=== PATIENT | female | born 1990 | race Caucasian/White ===

== ENCOUNTER 2019-09-24 10:46 | Inpatient (IN) | payer BC ==
[2019-09-24] MEDS ORDERED: METHYLERGONOVINE 0.2 MG/ML 1 ML AMP IM PRN (11:35)
[2019-09-24] MEDS ORDERED: LIDOCAINE 0.5% (PF) 5 MG/ML (50 ML SDV) SQ PRN (11:35)
[2019-09-24] MEDS ORDERED: OXYTOCIN 10 UNIT/ML 1 ML VIAL IM PRN (11:35)
[2019-09-24] MEDS ORDERED: CARBOPROST TROMETHAMINE 250 MCG/ML 1 ML AMP IM PRN (11:35)
[2019-09-24] MEDS ORDERED: TERBUTALINE 1 MG/ML VIAL SQ PRN (11:35)
[2019-09-24] MEDS ORDERED: LACTATED RINGERS 1,000 ML IV SCH (11:45)
[2019-09-24] MEDS ORDERED: OXYTOCIN 30 UNITS/500 ML NS 30 UNIT in SALINE 1 500ML.BAG IV SCH (11:45)
[2019-09-24 12:17] LABS: Basophils % (A) 0 %; Eosinophils # (A) 0.1 k/uL (0-0.7); Eosinophils % (A) 1 %; HCT 36.2 % (34.0-46.0); Lymphocytes # (A) 1.1 k/uL (1.0-4.8); Lymphocytes % (A) 18 %; MCHC 33.2 g/dL (31.0-37.0); MCV 90.3 fL (80.0-100.0); Mean Platelet Volume 8.5; Monocytes # (A) 0.3 k/uL (0-1.0); Monocytes % (A) 6 %; Neutrophils # (A) 4.4 k/uL (1.3-7.7); Neutrophils % (A) 74 %; Platelet Count 198 k/uL (150-450); RBC 4.01 m/uL (3.80-5.40); RDW 14.2 % (11.5-15.5); WBC 5.9 k/uL (3.8-10.6)
--- NOTE | 2019-09-24 13:03 | P.HPOB ---
History of Present Illness H&P Date: 09/24/19 Chief Complaint: My water broke at midnight This is a 29-year-old white female 2 para 1001 EDC 10/02/2019 at 38-6/7 weeks' gestation. Patient presents with a history of leaking clear fluid since midnight. She is having irregular mild uterine contractions. Fetus is been active throughout the . Obstetric history is significant for negative group B strep cultures, 1 hour Glucola 76, gonorrhea and chlamydia cultures negative, hepatitis B surface antigen urine culture and HIV negative, blood type O positive, rubella status immune. Past medical history is significant for anxiety. Past surgical history cervical life conization, wisdom teeth extracted. Current medications Zoloft 50 mg daily, vitamin daily. ALLERGIES none known. Family history significant for ovarian cancer. Social history patient is , she works for the [employer], she has never been a smoker and denies alcohol or drug use. On exam patient is 5 foot 5 inches, 240 pounds, blood pressure 131/79 on admission. Patient is afebrile. The general physical exam is within normal limits. Cervix is 4-5 cm dilated, 80% effaced, -1 station, vertex presentation, slightly posterior. Artificial amniorrhexis of a fore-bag reveals clear fluid. heart rate is consistent with reactive NST. Impression: 38-6/7 weeks intrauterine , early active labor. All signs reassuring. Plan: Continue close maternal and surveillance. At oxytocin augmentation as needed. Analgesic options have been reviewed with the patient. Anticipate normal spontaneous vaginal delivery. Review of Systems Constitutional: Reports as per HPI Past Medical History Additional Past Medical History / Comment(s): severe cervical dysplasia History of Any Multi-Drug Resistant Organisms: None Reported Additional Past Surgical History / Comment(s): wisdom teeth, cold knife cone, colposcopy,LEEP Past Anesthesia/Blood Transfusion Reactions: No Reported Reaction Past Psychological History: Anxiety Smoking Status: Never smoker Past Alcohol Use History: None Reported Past Drug Use History: None Reported - Past Family History Father Family Medical History: No Reported History Medications and Allergies Home Medications Medication Instructions Recorded Confirmed Type Pnv No.95/Ferrous Fum/Folic AC 1 tab PO DAILY 09/24/19 09/24/19 History [ Multivitamin Tablet] Sertraline [Zoloft] 50 mg PO DAILY 09/24/19 09/24/19 History Allergies Allergy/AdvReac Type Severity Reaction Status Date / Time No Known Allergies Allergy Verified 09/24/19 11:01 Exam Vital Signs Temp Pulse Resp BP Pulse Ox 09/24/19 11:02 97.9 F 103 H 18 131/79 96 Intake and Output 09/23/19 09/24/19 09/24/19 22:59 06:59 14:59 Other: Weight 108.862 kg see dictation please Results Result Diagrams: 09/24/19 12:03 Assessment and Plan Assessment: 38-6/7 weeks intrauterine , spontaneous amniorrhexis, early active labor. All signs reassuring. Plan: Analgesic options have been reviewed with the patient. Oxytocin augmentation per protocol. Close maternal and surveillance. Anticipate normal spontaneous vaginal delivery. Time with Patient: Less than 30
--- NOTE | 2019-09-24 13:04 | P.MSEPDOC ---
Presenting Problems - Arrival Data Date of Arrival on Unit: 09/24/19 Time of Arrival on Unit: 10:45 Mode of Transport: Ambulatory - Complaint OB-Reason for Admission/Chief Complaint: Rule Out SROM Comment: ROM clear fluid 0000 Medical History - Information : 2 Para: 1 Term: 1 : 0 Abortions: Spontaneous or Elective: 0 Number of Living Children: 1 - Gestational Age Gestational Age by MARY CARMEN (wks/days): 38 Weeks and 6 Days Review of Systems - Review of Systems Constitutional: No problems Breast: No problems ENT: No problems Cardiovascular: No problems Respiratory: No problems Gastrointestinal: No problems Genitourinary: No problems Musculoskeletal: No problems Neurological: No problems Skin: No problems Vital Signs - Temperature Temperature: 97.9 F Temperature Source: Temporal Artery Scan - Pulse Right Brachial Pulse Rate: 103 Pulse Assessment Method: Automatic Cuff - Respirations Respiratory Rate: 18 Oxygen Delivery Method: Room Air O2 Sat by Pulse Oximetry: 96 - Blood Pressure Right Arm Sitting Blood Pressure: 131/79 Blood Pressure Mean: 96 Blood Pressure Source: Automatic Cuff Medical Screen Scoring (Pre) - Cervical Exam Dilation: 1-3 cm = 1 Effacement: More than 50% = 2 Membranes: Ruptured = 3 - Uterine Contractions Frequency: > 5 minutes apart = 1 Duration: > 40 seconds = 2 Intensity: N/A - Maternal Vital Signs Maternal Temperature: N/A Maternal Blood Pressure: N/A Signs of Preeclampsia: N/A Maternal Respirations: N/A - Maternal Trauma Maternal Trauma: N/A - Assessment - Baby A Baseline FHR: 135 Heart Rate - NICHD Category: Category I (Normal) = 0 NST: Reactive Position: N/A Station: N/A - Total Score - Baby A Total Score - Baby A: 9 - Total Score - Baby B Total Score - Baby B: 9 - Total Score - Baby C Total Score - Baby C: 9 - Level of Risk - Baby A Level of Risk - Baby A: Medium (6-9) - Level of Risk - Baby B Level of Risk - Baby B: Medium (6-9) - Level of Risk - Baby C Level of Risk - Baby C: Medium (6-9) Physician Notification (Pre) - Physician Notified Physician Notified Date: 09/24/19 Physician Notified Time: 11:25 New Order Received: Yes (admit for labor, start Pitocin, may have epidural prn) Disposition - Disposition OB Disposition: Admit, LDRP Suite I agree with the RN Medical Screening Exam: Yes Risk & Benefit of care provided described in d/c instruction: Yes Diagnosis: LOUSE-BORNE TYPHUS
[2019-09-24] MEDS ORDERED: ROPIVACAINE 5MG/ML 20ML VIAL ONE (13:45)
[2019-09-24] MEDS ORDERED: SODIUM CHLORIDE 0.9% 100 ML BAG ONE (13:45)
[2019-09-24] MEDS ORDERED: fentaNYL (PF) 50 MCG/ML 5 ML AMP ONE (13:45)
[2019-09-24] MEDS ORDERED: diphenhydrAMINE 50 MG CAP PO PRN (17:03)
[2019-09-24] MEDS ORDERED: WITCH HAZEL 1 EACH MED..PAD TOPICAL PRN (17:03)
[2019-09-24] MEDS ORDERED: diphenhydrAMINE 25 MG CAP PO PRN (17:03)
[2019-09-24] MEDS ORDERED: ACETAMINOPHEN TAB 325 MG TAB PO PRN (17:03)
[2019-09-24] MEDS ORDERED: HYDROCORTISONE 2.5% RECTAL CREAM 30 GM TUBE RECTAL PRN (17:03)
[2019-09-24] MEDS ORDERED: SIMETHICONE 80 MG CHEWABLE PO PRN (17:03)
[2019-09-24] MEDS ORDERED: ZOLPIDEM 5 MG TAB PO PRN (17:03)
[2019-09-24] MEDS ORDERED: diphenhydrAMINE 50 MG/ML 1 ML VIAL IVP PRN ×2 (17:03)
[2019-09-24] MEDS ORDERED: IBUPROFEN 600 MG TAB PO PRN (17:03)
[2019-09-24] MEDS ORDERED: LANOLIN CREAM 5 GM TUBE TOPICAL PRN (17:03)
[2019-09-24] MEDS ORDERED: BENZOCAINE/MENTHOL SPRAY 1 GM/SPRAY AEROSOL TOPICAL PRN (17:03)
--- NOTE | 2019-09-24 17:03 | P.PROBDLV ---
Vaginal Delivery Note - . Vaginal Delivery Note: This is a 29-year-old white female 2 para 1001 EDC 10/02/2019 at 38-6/7 weeks' gestation. Patient presented with spontaneous amniorrhexis which occurred at home, clear fluid. Fetus is been active throughout the . history is significant for group B strep cultures negative, rubella status immune, but type O positive. Please see my dictated history and physical for details. Epidural was placed per her request. Oxytocin was started and titrated per hospital protocol. Patient progressed well through the first stage of labor and became completely dilated at 1628 hrs. Perineal body was prepped and draped in usual sterile fashion. With excellent maternal expulsive efforts the 's head delivered occiput anterior and he restituted accordingly. There was a nuchal cord 1 that was reduced. The right or anterior shoulder was delivered from underneath the pubic symphysis at which time the oropharynx, nasopharynx, and external nares were bulb suctioned on the perineal body. Patient was officially delivered of a liveborn male infant at 1643 hours. The placenta was delivered spontaneously with active management, it was inspected and noted to be intact with trivascular cord at 1646 hrs. The uterus is then massaged. Careful inspection of the cervix, vagina, perineum, periurethral, and perirectal areas reveals a small first-degree midline laceration at 6:00. This is repaired in the usual fashion with a single [id number] suture of 3-0 Rapide. Fundus is firm and in the midline, symmetric and 18 week size upon completion of delivery. weighs 3840 g, or 8 lbs. 8 oz. Patient is requesting circumcision for her infant son. Total estimated blood loss 250 mL's. And her are allowed to begin the bonding experience in the LDR.
[2019-09-24] MEDS ORDERED: OXYTOCIN 20 UNITS/1000 ML NS 1,000 ML IV SCH (17:15)
[2019-09-24] MEDS ORDERED: SENNOSIDES-DOCUSATE SODIUM 1 EACH TAB PO SCH (20:00)
[2019-09-25 06:13] LABS: Basophils % (A) 0 %; Eosinophils % (A) 1 %; HCT 33.7 % (34.0-46.0); Lymphocytes # (A) 1.3 k/uL (1.0-4.8); Lymphocytes % (A) 16 %; MCH 29.5 pg (25.0-35.0); MCHC 32.7 g/dL (31.0-37.0); MCV 90.2 fL (80.0-100.0); Mean Platelet Volume 8.3; Monocytes # (A) 0.5 k/uL (0-1.0); Monocytes % (A) 7 %; Neutrophils # (A) 6.1 k/uL (1.3-7.7); Neutrophils % (A) 75 %; Platelet Count 204 k/uL (150-450); RBC 3.74 m/uL (3.80-5.40); RDW 14.2 % (11.5-15.5); WBC 8.1 k/uL (3.8-10.6)
--- NOTE | 2019-09-25 07:43 | P.DS ---
Providers Date of admission: 09/24/19 11:22 Expected date of discharge: 09/25/19 Attending physician: Ashley Spann Primary care physician: Stated None Hospital Course: This is a 29-year-old white female 2 para 1001 EDC 10/02/2019 at 38-6/7 weeks' gestation. Patient presented with spontaneous amniorrhexis, clear fluid, which occurred at home. is remarkable for blood type O positive, rubella status immune, group B strep cultures negative. Please see dictated history and physical for details. Oxytocin augmentation was started per protocol. Epidural was placed per her request. She went on to deliver a liveborn male with scores of 9 and 9 at one and 5 minutes respectively. Infant weighed 8 lbs. 8 oz. or 3840 g. There was a small first-degree perineal laceration easily repaired, a nuchal cord 1, and an estimated blood loss of 250 mL's. Please see my dictated delivery note for details. This morning the patient is doing well. She is voiding, ambulating and passing flatus without difficulty. Vital signs are stable and she is afebrile. Fundus is firm and in the midline, symmetric and 18 week size. Extremities are negative for edema. [place] infant is doing well, circumcision has been performed. Patient is judged to be in very good condition for discharge home. She will follow-up in the office with me in 6 weeks. She is reminded no intercourse, tampons or douching. She will use [id number] ibuprofen, or Advil or Aleve as needed for pain. I've asked her to call me with any fevers shakes or chills, foul smelling or copious lochia, with the passage of large blood clots, with any pain not alleviated by [id number] products, or with any concerns. We have briefly reviewed contraceptive options and we will discuss this further in the office. Assessment: Doing well day #1 Patient Condition at Discharge: Good Plan - Discharge Summary Discharge Rx Participant: No New Discharge Prescriptions: No Action Sertraline [Zoloft] 50 mg PO DAILY Pnv No.95/Ferrous Fum/Folic AC [ Multivitamin Tablet] 1 tab PO DAILY Discharge Medication List Pnv No.95/Ferrous Fum/Folic AC [ Multivitamin Tablet] 1 tab PO DAILY 09/24/19 [History] Sertraline [Zoloft] 50 mg PO DAILY 09/24/19 [History] Follow up Appointment(s)/Referral(s): Ashley Spann MD [STAFF PHYSICIAN] - 6 Weeks
[2019-09-25 08:02] VITALS: RESP 16
[2019-09-25 16:04] VITALS: BP 120/72; PULSE 72; TEMP 98.2
== END 2019-09-25 17:25 | disposition home or self-care (01) | DRG 807 ==
LOC: FBPOP 10:46 → 4FBP 11:22
PROVIDERS: ADMIT Obstetrics & Gynecology; ATTEND Obstetrics & Gynecology
PROC: 0HQ9XZZ Repair Perineum Skin, External Approach (ICD-10-PCS; principal; 2019-09-24)
PROC: 3E0R3BZ Introduction of Anesthetic Agent into Spinal Canal, Percutaneous Approach (ICD-10-PCS; principal; 2019-09-24)
PROC: 00HU33Z Insertion of Infusion Device into Spinal Canal, Percutaneous Approach (ICD-10-PCS; principal; 2019-09-24)
PROC: 10E0XZZ Delivery of Products of Conception, External Approach (ICD-10-PCS; principal; 2019-09-24)
DX: O69.81X0 Labor and delivery complicated by cord around neck, without compression, not applicable or unspecified (principal); Z37.0 Single live birth; O99.344 Other mental disorders complicating childbirth; F41.9 Anxiety disorder, unspecified; O70.0 First degree perineal laceration during delivery; Z3A.38 38 weeks gestation of pregnancy; Z11.59 Encounter for screening for other viral diseases; Z79.899 Other long term (current) drug therapy; Z86.001 Personal history of in-situ neoplasm of cervix uteri; Z80.41 Family history of malignant neoplasm of ovary
CPT/HCPCS: 59025; 84112; 85025; 86850; 86900; 86901; 87635; 99213